=== PATIENT | female | born 1965 | race African-American/Black ===

== ENCOUNTER 2024-04-07 13:34 | Emergency (ER) | payer OTHER ==
[~2024-04-07] VITALS: Ht 157.5 cm; Wt 85.7 kg
[2024-04-07 14:01] VITALS: BP 141/78
[2024-04-07] MEDS ORDERED: KETOROLAC TROMETHAMINE 30 MG/ML SDV IM ONE (14:10)
[2024-04-07] MEDS ORDERED: MORPHINE SULFATE 4 MG/ML VIAL IM ONE (14:10)
[2024-04-07] MEDS ORDERED: ONDANSETRON 4 MG/TAB ODT PO ONE (14:10)
[2024-04-07] MEDS ORDERED: TRAMADOL HYDROC50 M1 PO (14:12)
[2024-04-07] MEDS ORDERED: MELOXICAM15 MG PO (14:12)
[2024-04-07 14:15] VITALS: BP 143/90
[2024-04-07] MEDS ORDERED: PREDNISONE50 MG PO (14:15)
[2024-04-07 14:30] VITALS: BP 118/73
[2024-04-07 14:47] VITALS: BP 118/73
== END 2024-04-07 14:48 | disposition home or self-care (01) | DRG 554 ==
LOC: ED 13:34
DX: M16.12 Unilateral primary osteoarthritis, left hip (principal); I10 Essential (primary) hypertension; E78.5 Hyperlipidemia, unspecified